=== PATIENT | female | born 1970 | race Caucasian/White ===

== ENCOUNTER 2020-02-20 20:09 | Emergency (ER) | payer BC ==
[2020-02-20] MEDS ORDERED: ATEN25TA PO (20:19)
[2020-02-20] MEDS ORDERED: ALEN70TA74 PO (20:19)
[2020-02-20] MEDS ORDERED: ACETAMINOPHEN 500 MG TAB PO ONE (21:00)
--- NOTE | 2020-02-21 05:01 | REP ---
Clinical: Trauma. Fall. Technique: AP, lateral, bilateral oblique views of the right wrist. Findings: There is a comminuted intra-articular fracture involving the distal radial metaphysis and ulnar styloid fracture. Overlying soft tissue swelling. The carpal bones appear grossly intact. Impression: Intra-articular fracture of the distal radial metaphysis and ulnar styloid process. Electronically Signed by Gurpreet Garcia MD 02/21/2020 04:53 A
== END 2020-02-20 22:00 | disposition home or self-care (01) ==
LOC: M ED 20:09
DX: S52.611A Displaced fracture of right ulna styloid process, initial encounter for closed fracture (principal); S52.571A Other intraarticular fracture of lower end of right radius, initial encounter for closed fracture; Z88.2 Allergy status to sulfonamides; W18.30XA Fall on same level, unspecified, initial encounter; Y93.89 Activity, other specified; Y99.8 Other external cause status; Y92.009 Unspecified place in unspecified non-institutional (private) residence as the place of occurrence of the external cause; Z87.891 Personal history of nicotine dependence; I10 Essential (primary) hypertension; Z79.899 Other long term (current) drug therapy

== ENCOUNTER 2020-05-25 09:45 | Outpatient (RCR) | payer BC ==
[~2020-05-25 09:45] MED LIST: ALEN70TA74 PO; ATEN25TA PO
== END 2020-06-14 ==
LOC: M OT 09:45
PROVIDERS: ATTEND Orthopaedic Surgery
DX: S52.571D Other intraarticular fracture of lower end of right radius, subsequent encounter for closed fracture with routine healing (principal); S52.514D Nondisplaced fracture of right radial styloid process, subsequent encounter for closed fracture with routine healing; W18.30XD Fall on same level, unspecified, subsequent encounter; Y92.9 Unspecified place or not applicable

== ENCOUNTER → 2020-07-07 | Outpatient (CLI) | payer BC ==
[~2020-07-07] MED LIST changes: +GASTROGRAFIN SOLUTION 30ML (Q9963) As Ordered ONE; +ISOVUE-370 76% 100ML VIAL As Ordered ONE
--- NOTE | 2020-07-07 21:00 | REP ---
INDICATION: ABD PAIN. COMPARISON: 04/30/2012 TECHNIQUE: Axial contrast-enhanced images from the lung bases to the pubic symphysis using 100 cc Isovue 370 intravenous contrast material. Delayed images of the abdomen obtained along with coronal and sagittal reformations. This CT examination was performed using the following dose reduction techniques: Automated exposure control, adjustment of mA and/or kv according to the patient's size, and the use of iterative reconstruction technique. FINDINGS: Liver, spleen, pancreas, gallbladder, bilateral adrenal glands and kidneys are normal. The enteric system including stomach, small, and large bowel appears normal. No evidence for obstruction or acute inflammatory process. Normal terminal ileum and cecum are identified in the right lower quadrant. Pelvis demonstrates normal bladder and evidence for prior hysterectomy. No ascites. No free air. No intraperitoneal or retroperitoneal adenopathy. Abdominal aorta and vasculature appear normal. Musculoskeletal structures are intact and without acute osseous abnormality. Lung bases are clear. IMPRESSION: No acute abdominopelvic pathology appreciated. No ascites, focal inflammatory stranding, or adenopathy. <Electronically signed by Gurpreet Garcia > 07/07/20 3212
== END ==
LOC: M RAD 14:38
DX: R10.9 Unspecified abdominal pain (principal)
CPT/HCPCS: 74177; Q9963; Q9967

== ENCOUNTER → 2021-06-08 | Outpatient (CLI) | payer BC ==
[~2021-06-08] MED LIST changes: -ALEN70TA74 PO; +ALEN70TA82 PO; -GASTROGRAFIN SOLUTION 30ML (Q9963) As Ordered ONE; -ISOVUE-370 76% 100ML VIAL As Ordered ONE
[2021-06-08 10:12] LABS: ALBUMIN 4.3 GM/DL (3.2-5.2); ALT/SGPT 20 U/L (12-78); BILIRUBIN,TOTAL 0.9 MG/DL (0.2-1.0); BLOOD UREA NITROGEN 21 MG/DL (7-18); CALCIUM LEVEL 9.5 MG/DL (8.5-10.1); CARBON DIOXIDE LEVEL 29 MEQ/L (21-32); CHLORIDE LEVEL 102 MEQ/L (98-107); CREATININE FOR GFR 0.75 MG/DL (0.55-1.30); GLOMERULAR FILTRATION RATE > 60.0 (>58); GLUCOSE, FASTING 92 MG/DL (70-100); POTASSIUM SERUM 4.2 MEQ/L (3.5-5.1); SODIUM LEVEL 139 MEQ/L (136-145); TOTAL 25(OH) VITAMIN D 39.8 NG/ML (30.0-100.0); TOTAL PROTEIN 7.7 GM/DL (6.4-8.2)
[2021-06-12 03:11] LABS: ALK PHOSPHATASE BONE SPECIFIC 14.6 ug/L (.); CREATININE URINE 65.4 mg/dL (Not Estab.)
== END ==
LOC: M LAB 08:26
DX: M81.0 Age-related osteoporosis without current pathological fracture (principal)

== ENCOUNTER → 2021-10-25 | Outpatient (REF) | payer BC | LOC: M SFHCDERM 13:57 | PROVIDERS: ATTEND Dermatology | DX: L72.9 Follicular cyst of the skin and subcutaneous tissue, unspecified (principal) ==